=== PATIENT | male | born 1980 | race Hispanic/Latino ===

== ENCOUNTER 2016-12-30 12:35 | Inpatient (IN) | payer OTHER ==
--- NOTE | 2016-12-30 13:01 | RAD ---
PORTABLE CHEST 1 VIEW: Date: 12/30/16 Time: 1257 hours HISTORY: Chest pain. FINDINGS/IMPRESSION: The heart size is normal. No confluent areas of consolidation, pneumothorax, alie pulmonary edema, or large effusions are seen. POS: [facility]
[2016-12-30 13:05] LABS: #Basophils 0.1 thou/uL (0.0-0.2); #Lymphocytes 2.5 thou/uL (1.20-3.40); #Monocytes 0.5 thou/uL (0.11-0.59); #Neutrophils 4.8 thou/uL (1.40-6.50); %Basophils 1.1 % (0.0-1.0); %Eosinophils 0.1 % (0.0-10.0); %Lymphocytes 31.2 % (21.0-51.0); %Monocytes 6.6 % (0.0-10.0); Hematocrit 46.4 % (42.0-52.0); Mean Platelet Volume 7.3 fL (7.4-10.4); Red Blood Cell (RBC) Count 5.17 mill/uL (4.70-6.10); White Blood Cell (WBC) Count 7.9 thou/uL (4.8-10.8)
[2016-12-30 13:18] LABS: ALT (SGPT) 27 U/L (8-55); AST (SGOT) 24 U/L (5-34); Alkaline Phosphatase 79 U/L (40-150); Anion Gap 12 mmol/L (10-20); BUN (Urea Nitrogen) 20 mg/dL (8.9-20.6); Bilirubin, Total 0.4 mg/dL (0.2-1.2); Calc. Creatinine Clearance 0 mL/min (70-130); Calcium 9.2 mg/dL (7.8-10.44); Carbon Dioxide 27 mmol/L (22-29); Chloride 104 mmol/L (98-107); Estimated GFR-MDRD 72; Globulin 2.9 g/dL (2.4-3.5); Protein, Total 7.2 g/dL (6.0-8.3)
[2016-12-30] MEDS ORDERED: Ketorolac Tromethamine 30 MG/ML VIAL ONE (13:56)
[2016-12-30] MEDS ORDERED: ISOVUE-370 76%-LOCM 1 ML ONE (15:02)
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
[2016-12-30 15:29] LABS: Bilirubin Negative (Negative); Blood, Urine Negative (Negative); Glucose, Urine (Dipstick) Negative (Negative); Ketone, Urine Negative (Negative); Nitrite Negative (Negative); Protein, Urine (Dipstick) Negative (Neg-Trace)
[2016-12-30 15:38] LABS: Amphetamine Not Detected (NotDetected); Methadone Not Detected (NotDetected); Methamphetamine Not Detected (NotDetected)
[2016-12-30] MEDS ORDERED: Ondansetron HCl/PF 4 MG/2 ML Vial IVP PRN ×2 (16:17→16:27)
[2016-12-30] MEDS ORDERED: Ondansetron ODT 4 MG TAB SL PRN (16:17)
[2016-12-30] MEDS ORDERED: Dextrose 5% in Water 1,000 ML IV PRN (16:27)
[2016-12-30] MEDS ORDERED: Ondansetron ODT 4 MG TAB PO PRN (16:27)
[2016-12-30] MEDS ORDERED: Promethazine HCl 25 MG/ML VIAL IM PRN (16:27)
[2016-12-30] MEDS ORDERED: Dextrose 50% Abboject 50 ML SYRINGE SLOW IVP PRN (16:27)
[2016-12-30 16:36] VITALS: BMI 27.4
[2016-12-30] MEDS: Ibuprofen 800 MG TAB PO SCH (17:31)
[2016-12-30] MEDS: Acetaminophen 325 MG TAB PO SCH (17:32)
[2016-12-30] MEDS: traMADol HCl 50 MG TAB PO SCH (17:32)
[2016-12-30] MEDS ORDERED: Famotidine 20 MG TAB PO SCH (21:00)
[2016-12-30] MEDS ORDERED: Ketorolac Tromethamine 30 MG/ML VIAL IVP SCH (21:00)
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
[2016-12-31] MEDS: Ibuprofen 800 MG TAB PO SCH ×2 (00:27→08:37)
[2016-12-31] MEDS: traMADol HCl 50 MG TAB PO SCH ×3 (00:27→12:38)
[2016-12-31] MEDS: Acetaminophen 325 MG TAB PO SCH ×3 (00:30→12:38)
--- NOTE | 2016-12-31 09:28 | RAD ---
CHEST 1 VIEW: HISTORY: Pulmonary contusion. Followup. COMPARISON: 12/30/16. FINDINGS: Cardiac silhouette is magnified by projection. Pulmonary vasculature is unremarkable. Mediastinum is midline with rightward convex curvature of the thoracic spine. No confluent airspace consolidati on is evident. Small loculated pneumothorax at the left anterior lung base is not changed from the recent CT allowing for differences in technique. No evidence of apical pneumothorax. IMPRESSION: Stable radiographic appearance of the chest. POS: [facility]
[2016-12-31 12:35] VITALS: BP 136/88; TEMP 97.9
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
== END 2016-12-31 16:20 | disposition home or self-care (01) | DRG 200 ==
LOC: ERS 12:35 → SURG A 13:32
PROVIDERS: ADMIT Specialist; ATTEND Specialist
DX: J93.83 Other pneumothorax (principal); S27.321A Contusion of lung, unilateral, initial encounter; Z72.0 Tobacco use; Z72.89 Other problems related to lifestyle; G89.11 Acute pain due to trauma
CPT/HCPCS: 71010; 71260; 74177; 80053; 80306; 80307; 81003; 85025; 94640; 96374; 96375; G0390; J1885; J2270; J7620